=== PATIENT | male | born 1965 ===

== ENCOUNTER 2021-04-20 16:45 | Emergency (ER) | payer MEDICARE ==
[~2021-04-20] VITALS: Ht 167.6 cm; Wt 87.5 kg
== END 2021-04-20 18:55 | disposition home or self-care (01) ==
LOC: ER 16:45
DX: U07.1 COVID-19 (principal); I95.9 Hypotension, unspecified; Z88.5 Allergy status to narcotic agent
CPT/HCPCS: 99284; J7030